=== PATIENT | male | born 1980 | race Caucasian/White ===

== ENCOUNTER → 2018-05-03 11:33 | Outpatient (REF) | payer MEDICAID, SELFPAY ==
[2018-05-03 15:08] LABS: Amphetamine/Metha Screen,Urine Negative ng/mL (<1000); Barbiturates Screen,Urine Negative ng/mL (<200); Benzodiazepines Screen,Urine Negative ng/mL (<200); Cannabinoid Screen,Urine Negative ng/mL (<50); Cocaine Screen,Urine Negative ng/mL (<300); Methadone Screen,Urine Negative ng/mL (<300); Opiate Screen,Urine Negative ng/mL (<300); Phencyclidine Screen,Urine Negative ng/mL (<25)
== END ==
LOC: LAB 11:33
PROVIDERS: Visit Provider Nurse Practitioner Family
DX: Z79.899 Other long term (current) drug therapy (principal)
CPT/HCPCS: 80305

== ENCOUNTER → 2018-05-28 15:24 | Outpatient (CLI) | payer MEDICAID, SELFPAY ==
--- NOTE | 2018-05-28 15:26 | CA_ITS ---
PROCEDURE: 2-D M-mode and color Doppler study INDICATIONS FOR THE TEST: Chest pain+ COPD Heart Murmur Tobacco Smoking+ Palpitations+ Fatigue+ Syncope Edema+ Hypertension Diabetes Mellitus Rheumatic Fever SOB IVAN+Obesity Hyperlipidemia Family History HD+ Additional History dizziness, hx of TV repair, Hx of IV drug use(clean 8 months per patient), hx of ETOH abuse, hx of endocarditis PATIENT INFORMATION HEIGHT: 66 WEIGHT: 181 GENDER: Male B/P: 123/66 2-D/M-MODE INTERPRETATION: 2-D MEASUREMENTS OBSERVED VALUES IN CMS Right Ventricular Dimension (RVDd) 2.4 Interventricular Septum (Thickness)(IVsd) 1.0 Left Ventricular Internal Dimensions(LVIDd) 3.5 Left Ventricular Posterior Wall (Thickness)(LVPWd) 1.0 Aortic Root 2.6 Aortic Cusp Separation 2.0 Left Atrial Dimensions (LAD) 2.8 2D 1. Left atrium is normal size, left ventricle is normal size, there is no concentric left ventricular hypertrophy, visually estimated ejection fraction 55% with no regional wall motion abnormality. 2. The right atrium and right ventricle are relatively normal size and function. 3. The aortic, mitral valve is structurally normal. 4. The tricuspid valve leaflets are not well visualized. 5. The pulmonic valve is poorly visualized. 6. No significant pericardial effusion noted. DOPPLER INTERROGATION: Doppler interrogation of the aortic, mitral and tricuspid valvular presence of moderate to severe tricuspid regurgitation, tricuspid regurgitation jet velocity insufficient for calculation of the right ventricular systolic pressure. CONCLUSION: 1. Normal left ventricular size, preserved left ventricular systolic function, visually estimated ejection fraction 55% with no regional wall motion abnormality, diastolic parameters are within normal range. 2. Moderate to severe tricuspid regurgitation as described above. 3. No significant pericardial effusion noted
== END ==
PROVIDERS: PCP Emergency Medicine; Visit Provider Internal Medicine
DX: Z98.890 Other specified postprocedural states (principal)
CPT/HCPCS: 93306

== ENCOUNTER → 2018-06-11 10:52 | Outpatient (POV) | payer MEDICAID, SELFPAY | PROVIDERS: Family Provider Nurse Practitioner Family; PCP Emergency Medicine; Visit Provider Specialist | DX: R20.2 Paresthesia of skin (principal); R20.0 Anesthesia of skin ==

== ENCOUNTER 2018-09-26 13:31 | Inpatient (IN) ==
--- NOTE | 2018-09-26 13:50 | Emergency Department Note ---
ED Disposition Clinical Impression: Acute hepatitis Disposition: Admitted as Observation Condition on Discharge: Fair - Critical Care Critical Care Time: No Attestation: On 09/26/18, the high probability of a clinically significant, sudden or life threatening deterioration of the following system(s) required my full and direct attention, intervention and personal management. The time I documented below is in addition to time spent performing reported procedures but includes the following listed in this critical care notation. Medical Decision Making - Otoniel Inquiry Pt receiving controlled substance: No Vital Signs: 09/26/18 13:32 09/26/18 15:35 09/26/18 17:09 Temperature 97.7 F Temperature Source Oral Pulse Rate Pulse Rate [Apical] 85 77 75 Respiratory Rate 20 18 Blood Pressure Blood Pressure [Right Arm] 129/80 129/80 177/86 H Blood Pressure Mean [Right Arm] 96 96 116 Blood Pressure Source Blood Pressure Source [Right Arm] Automatic Cuff Automatic Cuff Automatic Cuff Blood Pressure Position Blood Pressure Position [Right Arm] Sitting Sitting Supine 02 Sat by Pulse Oximetry 97 99 98 Oxygen Delivery Method Room Air Room Air Room Air 09/26/18 17:38 09/26/18 18:00 Temperature 97.9 F 98.0 F Temperature Source Oral Oral Pulse Rate 80 Pulse Rate [Apical] 81 Respiratory Rate 18 18 Blood Pressure 125/86 Blood Pressure [Right Arm] 128/89 Blood Pressure Mean [Right Arm] 102 Blood Pressure Source Automatic Cuff Blood Pressure Source [Right Arm] Automatic Cuff Blood Pressure Position Sitting Blood Pressure Position [Right Arm] Sitting 02 Sat by Pulse Oximetry 98 Oxygen Delivery Method Room Air Room Air - Lab Data Lab Results 09/26/18 14:05: WBC 2.2 L, RBC 4.99, Hgb 15.1, Hct 47.7, MCV 95.6 H, MCH 30.2, MCHC 31.6 L, RDW 14.1, Plt Count 103 L, MPV 7.9, Neut % (Auto) 61.4, Lymph % (Auto) 29.4, [place] % (Auto) 7.4, Eos % (Auto) 0.7, Baso % (Auto) 1.0, Neut # (Auto) 1.4 L, Lymph # (Auto) 0.7, [place] # (Auto) 0.2, Eos # (Auto) 0.0, Baso # (Auto) 0.0 09/26/18 14:05: Sodium 135 L, Potassium 3.9, Chloride 101, Carbon Dioxide 27, Anion Gap 10.9, BUN 11, Creatinine 0.94, Estimated Creat Clear 106, Estimated GFR 91, Est GFR ( Amer) 111, Glucose 155 H, Calcium 9.2, Total Bilirubin 7.0 H, Direct Bilirubin 6.4 H, Indirect Bilirubin 0.6, AST 2349 H*, ALT 2252 H*, Alkaline Phosphatase 225 H, Troponin I < 0.02, Total Protein 7.8, Albumin 2.8 L 09/26/18 14:05: Lactate 0.9 09/26/18 14:05: ESR 37 H 09/26/18 14:05: C-Reactive Protein 3.1 H 09/26/18 14:05: PT 15.4 H, INR 1.51 H 09/26/18 14:05: Lipase 126 09/26/18 15:25: Urine Color [place], Urine Appearance Cloudy, Urine pH 5.5, Ur Specific [place] 1.025, Urine Protein 1+, Urine Glucose (UA) Negative, Urine Ketones Trace, Urine Blood Negative, Urine Nitrate Positive, Urine Bilirubin 3+ A, Urine Urobilinogen 4.0, Ur Leukocyte Esterase Negative, Urine RBC None, Urine WBC 3-5, Ur Squamous Epith Cells None, Calcium Oxalate Crystal 1+, Amorphous Sediment 3+, Urine Bacteria 1+ 09/26/18 15:25: Urine Opiates Screen Positive H, Urine Methadone Screen Negative, Ur Barbituates Screen Negative, Ur Phencyclidine Scrn Negative, Ur Amphetamines Screen Positive H, U Benzodiazepines Scrn Negative, Urine Cocaine Screen Negative, U Marijuana (THC) Screen Negative 09/26/18 15:25: Influenza Type A Ag Negative, Influenza Type B Ag Negative 09/26/18 15:25: Group A Strep Rapid Negative Result diagrams: 09/26/18 14:05 09/26/18 14:05 Orders (Tests/Meds): ED MEDICATIONS Generic Name Dose Route Start Last Admin Trade Name Freq PRN Reason Stop Dose Admin Aspirin 325 mg 09/27/18 09:00 Aspirin 325mg Tablet PO 10/27/18 08:59 DAILY RAQUEL Levofloxacin/Dextrose 750 mg in 150 mls @ 100 mls/hr 09/27/18 15:30 Levofloxacin 750mg/150ml Premix IV 10/10/18 15:29 Q24H RAQUEL Protocol Piperacillin Sod/Tazobactam 50 mls @ 100 mls/hr 09/26/18 21:30 Sod 3.375 gm/ Sodium Chloride IV 10/10/18 15:29 Q6H RAQUEL Protocol Sodium Chloride 1,000 mls @ 100 mls/hr 09/26/18 17:48 09/26/18 19:02 Sod Chlor 0.9% 1000ml Bag IV 10/26/18 17:47 100 mls/hr .Q10H RAQUEL Administration Sodium Chloride 25 mls @ 100 mls/hr 09/26/18 18:50 09/26/18 19:02 Sod Chlor 0.9% 25ml Bag IV 10/26/18 18:49 100 mls/hr Q6HP PRN Administration PHENERGAN DILUTION Ketorolac Tromethamine 15 mg 09/26/18 17:48 Toradol 30mg/Ml Vial IV 10/01/18 17:47 Q6HP PRN Moderate Pain Non-Formulary Medication 10 mg 09/27/18 09:00 Bisoprolol Fumarate [Bisoprolol 10mg Tablet] PO 10/27/18 08:59 DAILY RAQUEL Non-Formulary Medication 150 mg 09/27/18 09:00 Bupropion Hcl [Bupropion Xl] PO 10/27/18 08:59 DAILY RAQUEL Non-Formulary Medication 50 mg 09/27/18 09:00 Losartan Potassium [Losartan Potassium] PO 10/27/18 08:59 DAILY RAQUEL Non-Formulary Medication 1 tab 09/27/18 09:00 Buprenorphine Hcl/Naloxone Hcl [Zubsolv 8.6-2.1 Mg Tablet Sl] SUBLINGUAL 10/27/18 08:59 DAILY RAQUEL Ondansetron HCl 4 mg 09/26/18 17:48 Zofran 4mg/2ml Vial IV 10/26/18 17:47 Q8HP PRN Nausea Promethazine HCl 12.5 mg 09/26/18 18:49 09/26/18 19:01 Phenergan 25mg/Ml 1ml Vial IV 10/26/18 18:48 12.5 mg Q6HP PRN Administration NV Sodium Chloride 10 ml 09/26/18 17:48 Saline Flush 10ml Syringe IV 10/26/18 17:47 NEEDED PRN Maintain IV Site Discontinued Medications Generic Name Dose Route Start Last Admin Trade Name Freq PRN Reason Stop Dose Admin Levofloxacin/Dextrose 750 mg in 150 mls @ 100 mls/hr 09/26/18 15:30 09/26/18 15:34 Levofloxacin 750mg/150ml Premix IV 10/10/18 15:29 100 mls/hr Q24H RAQUEL Administration Protocol Piperacillin Sod/Tazobactam 50 mls @ 100 mls/hr 09/26/18 15:30 Sod 3.375 gm/ Sodium Chloride IV 10/10/18 15:29 Q6H RAQUEL Protocol Ketorolac Tromethamine 15 mg 09/26/18 15:01 09/26/18 15:05 Toradol 30mg/Ml Vial IV 09/26/18 15:02 15 mg ONCE ONE Administration Ondansetron HCl 4 mg 09/26/18 15:01 09/26/18 15:05 Zofran 4mg/2ml Vial IV 09/26/18 15:02 4 mg ONCE ONE Administration ORDERS Category Date Time Status Basic Metabolic Panel AMLAB Lab 09/27/18 06:00 Ordered Complete Blood Count Auto Diff AMLAB Lab 09/27/18 06:00 Ordered Diarrhea Panel, PCR Stat Lab 09/26/18 14:58 Ordered Liver Panel AMLAB Lab 09/27/18 06:00 Ordered Blood Culture Stat Micro 09/26/18 14:05 Received Strep Screen Confirmation Stat Micro 09/26/18 15:25 Received - Radiology Data #1 Image(s): Chest Image Reviewed: Yes I have reviewed radiologist's interpretation Preliminary Findings: Normal/NAD - ECG Data Tracing #1 EKG interpreted by Dre Sigala MD: Rhythm: sinus Rate: 76 [place]: normal Ectopy: none Conduction: normal ST Segment Changes: none T Wave Changes: none Q Waves: none No evidence of acute ischemia or injury Normal electrocardiogram - Physician Consults Physician Consulted: Yanet Time: 15:23 Reason -: Pt condition Comment/Response: Prefers patient be transferred to higher level of care if possible. Requests Levaquin and Zosyn. If unable to transfer, admit here on his service on a waiting list for transfer. Additional Consult: olga Anne [facility] Time: 16:09 Reason -: Transfer to another facilty Comment/Response: Patient states he will only be transferred to [facility] because that is where his infectious disease specialist, Dr. March practices. I spoke with Dr. Anne, hospitalist. They are currently putting patients on a waiting list for transfers. He was put on their waiting list. Will admit here per Dr. Holt's instructions. General Adult HPI - General Chief complaint: Chest Pain Stated complaint: chest pain, nausea, fever Time Seen by Provider: 09/26/18 14:40 Mode of Arrival: EMS Limitations: No Limitations Description of Symptoms (Recalled from ER Triage Doc. by RN): Pt reports chest pain, pt points to epigastric area when asked location of pain. Pt reports nausea that began after pain. Pt also reports a productive cough. Pt - History of Present Illness HPI narrative: Patient brought in by ambulance. States that yesterday evening he developed a fever up to 100.9, cough productive of bright yellow sputum, vomiting, diarrhea, rhinorrhea, sore throat, chest pain. History of IV drug abuse. Says that he used IV drugs a couple of days ago, says that he was supposed to be heroin but he does not think it was. He says that he has not been using IV drugs regularly, "just that one time". 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 States he was also hospitalized after that for a lung infection and blood infection in [place]. He states his symptoms n ow are similar. Also has hepatitis C. - Related Data Home Medications Medication Instructions Recorded Confirmed buprenorphine 8.6 mg-naloxone 2.1 1 tab SUBLINGUAL DAILY tab 05/03/18 09/26/18 mg sublingual tablet Aspirin 325 mg PO DAILY 09/26/18 09/26/18 Bisoprolol Fumarate [Bisoprolol 10 mg PO DAILY 09/26/18 09/26/18 10mg Tablet] Losartan Potassium 50 mg PO DAILY 09/26/18 09/26/18 buPROPion HCl [Bupropion Xl] 150 mg PO DAILY 09/26/18 09/26/18 Allergies Allergy/AdvReac Type Severity Reaction Status Date / Time No Known Allergies Allergy Verified 08/09/18 13:04 [facility] History - Hepatitis A Screen Drug use history?: Yes High risk sexual behaviors?: No History of sexually transmitted infection?: No Currently employed?: No Childcare worker?: No Do you have indoor plumbing?: Yes Do you have electricity?: Yes Attestation statement:: This patient has been screened for Hepatitis A risk factors. I have reviewed the patient's past medical history: Yes Medical History: Reports:: Gall Bladder Disease, Hypertension Denies:: Diabetes Mellitus Type 1, Diabetes Mellitus Type 2 Comment: 2 Heart attacks Other Surgeries: Yes: Cardiac Surgery, Cholecystectomy Amputation: No Fractures: No Comment: Tracheonimia, lemnodes removed on neck on left side.. - Social History Smoking Status: Current every day smoker Tobacco Type: cigarettes # Packs/Day (cigarettes): 1 Alcohol Intake: never Alcohol Intake Frequency:: other Substance Use Type: IV drugs, methamphetamine, former substance user, crack/cocaine Occupational Status: unemployed - Psychiatric History Expresses thoughts of harming self/others: None Suicide Plan Description: No Plan Family Hx:: Cancer, Hypertension, Coronary Artery Disease Comment: Father-CAD. Mother-CAD, passed at late 40's ROS Obtained: Yes All systems reviewed & no additional complaints - Constitutional Constitutional: Reports fever(s) - ENT Ears, Nose, Mouth, and Throat: Reports nasal discharge, Reports sore throat - Cardiovascular Cardiovascular: Reports chest pain - Respiratory Respiratory: Yes cough - Gastrointestinal Gastrointestingal: Reports: diarrhea, vomiting Physical Exam - General General appearance: alert Comment: Lying face down at the foot of the bed. Jaundiced. - Head Head exam: atraumatic, normocephalic - Eye Eye exam: Present: PERRL, EOMI, scleral icterus, jaundice - ENT ENT exam: Present: normal oropharynx, mucous membranes moist, TM's normal bilaterally - Neck Neck exam: Present: normal inspection, full ROM. Absent: meningismus, lymphadenopathy - Chest Chest inspection: Present: normal inspection, symmetric chest wall rise - Respiratory Respiratory exam: Present: normal lung sounds bilaterally. Absent: respiratory distress - Cardiovascular Cardiovascular exam: Present: regular rate, normal rhythm, normal heart sounds - Abdominal Exam Abdominal exam: Present: soft. Absent: distention, tenderness, guarding - Extremities Exam Extremities exam: Present: normal inspection, full ROM - Neurological Exam Neurological exam: Present: alert, oriented X3 - Psychiatric Psychiatric exam: Present: anxious - Skin Skin exam: Present: warm, dry, other (Multiple small scabs. No signs of active skin infections. No abscesses.)
[2018-09-26 14:24] LABS: Eosinophils % 0.7 % (0.1-12.0); Hematocrit 47.7 % (42.0-52.0); Hemoglobin 15.1 g/dL (14.1-18.0); Lymphocytes # 0.7 K/mm3 (0.7-4.5); Lymphocytes % 29.4 % (10-50); Mean Corpuscular HGB Conc 31.6 g/dL (31.8-35.4); Mean Corpuscular Hemoglobin 30.2 pg (27.0-31.2); Mean Corpuscular Volume 95.6 fl (80-94); Mean Platelet Volume 7.9 fl (7.4-10.4); Monocytes # 0.2 K/mm3 (0.1-1.0); Monocytes % 7.4 % (1.7-9.3); Neutrophils # 1.4 K/mm3 (1.8-7.8); Neutrophils % 61.4 % (37.0-80.0); Platelet Count 103 K/mm3 (142-424); Red Blood Count 4.99 M/mm3 (4.60-6.20); Red Cell Distribution Width 14.1 % (11.5-17.5); White Blood Count 2.2 K/mm3 (4.8-10.8)
[2018-09-26 14:38] LABS: Albumin Level 2.8 gm/dL (3.4-5.0); Alkaline Phosphatase 225 U/L (46-116); Anion Gap 10.9 mEq/L (5-15); Blood Urea Nitrogen 11 mg/dL (7-18); Carbon Dioxide 27 mmol/L (21.0-32.0); Chloride 101 mmol/L (98-107); Potassium 3.9 mmoL/L (3.5-5.1); Sodium 135 mmol/L (136-145); Total Protein,Serum 7.8 gm/dL (6.4-8.2)
[2018-09-26 14:53] LABS: Bilirubin,Direct 6.4 mg/dL (0.0-0.2); Bilirubin,Indirect 0.6 mg/dL (0.0-0.9); Calcium 9.2 mg/dL (8.5-10.1); Glucose 155 mg/dL (74-106)
[2018-09-26 14:59] LABS: Alanine Aminotransferase 2252 U/L (12-78); Aspartate Amino Transferase 2349 U/L (15-37)
[2018-09-26 15:32] LABS: Microscopic, Urine URINE MICROSCOPIC (MICROSCOPIC)
[2018-09-26 15:53] LABS: Appearance,Urine CLOUDY (Clear); Blood, Urine Negative (Negative); Color,Urine AMBER (Yellow); Glucose,Urine (UA) Negative (Negative); Ketones,Urine TRACE (Negative); Leukocyte Esterase,Urine Negative (Negative); PH,Urine 5.5 (5.0-8.5); Protein,Urine 1+ (Negative); Specific Gravity, Urine 1.025 (1.005-1.030)
[2018-09-26 15:57] LABS: Bilirubin,Urine 3+ (Negative)
[2018-09-26 16:10] LABS: Amorphous Sediment,Urine 3+ /lpf; Amphetamine/Metha Screen,Urine Positive ng/mL (<1000); Bacteria,Urine 1+ /lpf; Barbiturates Screen,Urine Negative ng/mL (<200); Benzodiazepines Screen,Urine Negative ng/mL (<200); Calcium Oxalate Crystals,Urine 1+ /lpf; Cannabinoid Screen,Urine Negative ng/mL (<50); Cocaine Screen,Urine Negative ng/mL (<300); Methadone Screen,Urine Negative ng/mL (<300); Opiate Screen,Urine Positive ng/mL (<300); Phencyclidine Screen,Urine Negative ng/mL (<25)
[2018-09-26 16:59] LABS: INR 1.51 (0.9-1.1); Prothrombin Time 15.4 seconds (9.4-11.8)
--- NOTE | 2018-09-27 07:14 | Pharmacy Consult Notes ---
[facility] Pharmacy VTE Monitoring - Patient Demographics Admission date: 09/26/18 Report Date: 09/27/18 Time: 07:14 Allergies/Adverse Reactions: Patient Allergies No Known Allergies Allergy (Verified 08/09/18 13:04) Height: 1.68 m Weight: 78.131 kg Patient Problems: Current Active Problems Acute hepatitis (Acute) - VTE Risk Labs: VTE Related Lab Results Hgb 15.1 g/dL (14.1-18.0) 09/26/18 14:05 Hct 47.7 % (42.0-52.0) 09/26/18 14:05 Plt Count 103 K/mm3 (142-424) L 09/26/18 14:05 PT 15.4 seconds (9.4-11.8) H 09/26/18 14:05 INR 1.51 (0.9-1.1) H 09/26/18 14:05 BUN 11 mg/dL (7-18) 09/26/18 14:05 Creatinine 0.94 mg/dL (0.70-1.30) 09/26/18 14:05 Estimated Creat Clear 106 mL/min (50-200) 09/26/18 14:05 Was VTE Risk Assessment Performed: Yes VTE Score: 4 VTE Risk Level: Low Risk Clinical Trial Participant: No - Prophylaxis VTE Prophylaxis Ordered?: Yes Types of VTE Prophylaxis: TEDS Knee High
[2018-09-27 07:20] LABS: Basophils % 0.6 % (0.1-2.0); Eosinophils # 0.1 K/mm3 (0.0-0.4); Eosinophils % 2.4 % (0.1-12.0); Hematocrit 43.9 % (42.0-52.0); Hemoglobin 14.9 g/dL (14.1-18.0); Lymphocytes % 29.5 % (10-50); Mean Corpuscular Hemoglobin 31.5 pg (27.0-31.2); Mean Corpuscular Volume 92.7 fl (80-94); Mean Platelet Volume 9.3 fl (7.4-10.4); Monocytes # 0.3 K/mm3 (0.1-1.0); Neutrophils # 1.9 K/mm3 (1.8-7.8); Neutrophils % 57.5 % (37.0-80.0); Platelet Count 97 K/mm3 (142-424); Red Blood Count 4.74 M/mm3 (4.60-6.20); Red Cell Distribution Width 13.9 % (11.5-17.5); White Blood Count 3.3 K/mm3 (4.8-10.8)
--- NOTE | 2018-09-27 09:08 | History & Physical Report ---
*Admission Date: 09/26/18 *Chief complaint: sob *History of present illness: this wm presented to the ed with fever and sob with cough - pt has sig hx of drug abuse including iv misuse- he was seen in the ed and noted to be icteric and he has known hx of hep b and c- possible exposure to hep a - Pt reports ch est pain, pt points to epigastric area when asked location of pain. Pt reports nausea that began after pain. Pt also reports a productive cough. Patient brought in by ambulance. States that yesterday evening he developed a fever up to 100.9, cough productive of bright yellow sputum, vomiting, diarrhea, rhinorrhea, sore throat, chest pain. History of IV drug abuse. Says that he used IV drugs a couple of days ago, says that he was supposed to be heroin but he does not think it was. He says that he has not been using IV drugs regularly, "just that one time". 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 States he was also hospitalized after that for a lung infection and blood infection in [place]. He states his symptoms now are similar. pt was admitted for eval and treatment [facility] History I have reviewed the patient's past medical history: Yes Medical History: Reports:: Gall Bladder Disease, Hypertension, Myocardial Infarction (x2), Palpitations Denies:: Cancer, Diabetes Mellitus Type 1, Diabetes Mellitus Type 2 Have you ever received a pneumonia vaccine?: Yes Have you received a flu vaccine this season?: Yes Other Surgeries: Yes: Cardiac Surgery, Cholecystectomy Amputation: No Fractures: No - *Social History Educational Level: Attended High School Smoking Status: Current every day smoker Tobacco Type: cigarettes # Packs/Day (cigarettes): 1 Alcohol Intake: never Alcohol Intake Frequency:: other Substance Use Type: IV drugs, methamphetamine, former substance user, crack/cocaine Last Used Substance: days (ago) Occupational Status: unemployed Travel in the last 8 weeks: None - Psychiatric History Expresses thoughts of harming self/others: None Suicide Plan Description: No Plan *Family Hx:: Cancer, Hypertension, Coronary Artery Disease Review of Systems - Review of Systems Review of systems:: pertinent systems reviewed and negative unless documented below - Constitutional Reports fever(s), Reports lack of energy, Reports weakness - Eyes Denies change in vision - ENT Denies sore throat - *Cardiovascular Denies shortness of breath - *Respiratory Reports cough, Reports shortness of breath, Denies coughing up blood - *Gastrointestinal Reports abdominal pain, Denies black, tarry stools - *Genitourinary Denies blood in urine - *Musculoskeletal Denies joint pain, Denies joint swelling - Integumentary/Breasts Denies rash - *Neurologic Reports weakness, Denies confusion, Denies headache(s), Denies seizure-like activity - Psychiatric Reports other (at baseline) Meds Home Medications Medication Instructions Recorded Confirmed Type buprenorphine 8.6 mg-naloxone 2.1 2 tab SUBLINGUAL DAILY tab 05/03/18 09/27/18 History mg sublingual tablet Aspirin 325 mg PO DAILY 09/26/18 09/26/18 History Bisoprolol Fumarate [Bisoprolol 10 mg PO DAILY 09/26/18 09/26/18 History 10mg Tablet] Losartan Potassium 50 mg PO DAILY 09/26/18 09/26/18 History buPROPion HCl [Bupropion Xl] 150 mg PO DAILY 09/26/18 09/26/18 History Allergies Allergy/AdvReac Type Severity Reaction Status Date / Time No Known Allergies Allergy Verified 08/09/18 13:04 Exam Vital signs and Labs for Last 24 Hours: Temp Pulse Resp BP Pulse Ox 98.4 F 65 17 124/55 L 99 09/27/18 08:00 09/27/18 08:00 09/27/18 08:00 09/27/18 08:00 09/27/18 08:00 Laboratory Results - last 24 hr 09/26/18 14:05: WBC 2.2 L, RBC 4.99, Hgb 15.1, Hct 47.7, MCV 95.6 H, MCH 30.2, MCHC 31.6 L, RDW 14.1, Plt Count 103 L, MPV 7.9, Neut % (Auto) 61.4, Lymph % (Auto) 29.4, [place] % (Auto) 7.4, Eos % (Auto) 0.7, Baso % (Auto) 1.0, Neut # (Auto) 1.4 L, Lymph # (Auto) 0.7, [place] # (Auto) 0.2, Eos # (Auto) 0.0, Baso # (Auto) 0.0 09/26/18 14:05: Sodium 135 L, Potassium 3.9, Chloride 101, Carbon Dioxide 27, Anion Gap 10.9, BUN 11, Creatinine 0.94, Estimated Creat Clear 106, Estimated GFR 91, Est GFR ( Amer) 111, Glucose 155 H, Calcium 9.2, Total Bilirubin 7.0 H, Direct Bilirubin 6.4 H, Indirect Bilirubin 0.6, AST 2349 H*, ALT 2252 H*, Alkaline Phosphatase 225 H, Troponin I < 0.02, Total Protein 7.8, Albumin 2.8 L 09/26/18 14:05: Lactate 0.9 09/26/18 14:05: ESR 37 H 09/26/18 14:05: C-Reactive Protein 3.1 H 09/26/18 14:05: PT 15.4 H, INR 1.51 H 09/26/18 14:05: Lipase 126 09/26/18 15:25: Urine Color [place], Urine Appearance Cloudy, Urine pH 5.5, Ur Specific [place] 1.025, Urine Protein 1+, Urine Glucose (UA) Negative, Urine Ketones Trace, Urine Blood Negative, Urine Nitrate Positive, Urine Bilirubin 3+ A, Urine Urobilinogen 4.0, Ur Leukocyte Esterase Negative, Urine RBC None, Urine WBC 3-5, Ur Squamous Epith Cells None, Calcium Oxalate Crystal 1+, Amorphous Sediment 3+, Urine Bacteria 1+ 09/26/18 15:25: Urine Opiates Screen Positive H, Urine Methadone Screen Negative, Ur Barbituates Screen Negative, Ur Phencyclidine Scrn Negative, Ur Amphetamines Screen Positive H, U Benzodiazepines Scrn Negative, Urine Cocaine Screen Negative, U Marijuana (THC) Screen Negative 09/26/18 15:25: Influenza Type A Ag Negative, Influenza Type B Ag Negative 09/26/18 15:25: Group A Strep Rapid Negative 09/27/18 06:25: Stl Aeromonas (PCR) Not detected, Stl C. cayetanensis PCR Not detected, Stool Rotavirus (PCR) Not detected, Stl Adenov F 40/41 PCR Not detected, Stool Astrovirus (PCR) Not detected, Stool Campylobacter PCR Not detected, Stl C.difficile Tox PCR Detected A, Stool Cryptosporidium PCR Not detected, Stl E.coli Shiga Tox PCR Not detected, Stool E coli O157 PCR Not detected, Stl Enterotoxigenic E PCR Not detected, Stool EPEC (PCR) Not detected, Stool EAEC (PCR) Not detected, Stl E. histolytica PCR Not detected, Stool Giardia Lamblia PCR Not detected, Stool Salmonella PCR Not detected, Stool Sapovirus (PCR) Not detected, Stl P. shigelloides PCR Not detected, Stl Shigella/EIEC PCR Not detected, St Y.enterocolitica PCR Not detected, Stool Vibrio (PCR) Not detected, Stl Vibrio cholerae PCR Not detected, Stl Norovirus GI/GII PCR Not detected 09/27/18 07:05: WBC 3.3 L D, RBC 4.74, Hgb 14.9, Hct 43.9, MCV 92.7, MCH 31.5 H, MCHC 34.0, RDW 13.9, Plt Count 97 L, MPV 9.3, Neut % (Auto) 57.5, Lymph % (Auto) 29.5, [place] % (Auto) 10.0 H, Eos % (Auto) 2.4, Baso % (Auto) 0.6, Neut # (Auto) 1.9, Lymph # (Auto) 1.0, [place] # (Auto) 0.3, Eos # (Auto) 0.1, Baso # (Auto) 0.0 I & O for Last 24 hours: Intake & Output 09/24/18 09/25/18 09/26/18 09/27/18 11:59 11:59 11:59 11:59 Intake Total 1080 / 1080 Output Total 400 / 400 Balance 680 / 680 Weight 172 lb 4 oz - Constitutional no acute distress - *Routine HEENT Exam Head: Present: normocephalic Eye: Present: EOMI, PERRL, conjunctival icterus ENT: Present: mucous membranes dry - *Routine Neck Exam Present: supple. Absent: JVD - *Routine Respiratory Exam Present: CTA bilaterally - *Routine Cardiovascular Exam Present: RRR, murmur. Absent: gallop, rubs, click - *Routine Abdominal Exam Present: soft, tenderness. Absent: organomegaly - *Routine Extremities Exam Present: full ROM. Absent: edema, calf tenderness - *Routine Skin Exam Present: intact - *Routine Neurological Exam Present: alert, oriented X3, CN II-XII intact. Absent: sensory deficit, motor deficit, altered mental status - Routine Psychiatric Exam Present: normal affect Assessment and Plan (1) IVDU (intravenous drug user) Current visit: Yes Status: Acute Category: Medical Code(s): F19.90 - Other psychoactive substance use, unspecified, uncomplicated (2) Acute hepatitis Current visit: Yes Status: Acute Category: Medical Code(s): B17.9 - Acute viral hepatitis, unspecified (3) History of endocarditis Current visit: No Status: Chronic Category: Medical Code(s): Z86.79 - Personal history of other diseases of the circulatory system (4) Leukopenia Current visit: Yes Status: Acute Category: Medical Code(s): D72.819 - Decreased white blood cell count, unspecified (5) Thrombocytopenia Current visit: Yes Status: Acute Category: Medical Code(s): D69.6 - Thrombocytopenia, unspecified (6) C. difficile colitis Current visit: Yes Status: Acute Category: Medical Code(s): A04.72 - Enterocolitis due to Clostridium difficile, not specified as recurrent (7) Buprenorphine dependence Current visit: Yes Status: Acute Category: Medical Code(s): F11.20 - Opioid dependence, uncomplicated
[2018-09-27 10:53] LABS: Albumin Level 2.3 gm/dL (3.4-5.0); Anion Gap 9.8 mEq/L (5-15); Potassium 3.8 mmoL/L (3.5-5.1); Total Protein,Serum 6.7 gm/dL (6.4-8.2)
[2018-09-27 12:04] LABS: Bilirubin,Total 7.3 mg/dL (0.2-1.0)
[2018-09-27 12:05] LABS: Bilirubin,Direct 5.9 mg/dL (0.0-0.2); Bilirubin,Indirect 1.4 mg/dL (0.0-0.9)
[2018-09-28 07:45] LABS: Basophils % 0.9 % (0.1-2.0); Eosinophils # 0.1 K/mm3 (0.0-0.4); Eosinophils % 3.7 % (0.1-12.0); Hematocrit 42.5 % (42.0-52.0); Hemoglobin 13.6 g/dL (14.1-18.0); Lymphocytes # 0.7 K/mm3 (0.7-4.5); Lymphocytes % 41.1 % (10-50); Mean Corpuscular HGB Conc 31.9 g/dL (31.8-35.4); Mean Corpuscular Hemoglobin 31.3 pg (27.0-31.2); Mean Corpuscular Volume 97.9 fl (80-94); Mean Platelet Volume 8.5 fl (7.4-10.4); Monocytes # 0.2 K/mm3 (0.1-1.0); Neutrophils # 0.7 K/mm3 (1.8-7.8); Neutrophils % 44.3 % (37.0-80.0); Platelet Count 68 K/mm3 (142-424); Red Blood Count 4.34 M/mm3 (4.60-6.20); Red Cell Distribution Width 14.2 % (11.5-17.5); White Blood Count 1.6 K/mm3 (4.8-10.8)
[2018-09-28 07:57] LABS: Albumin/Globulin Ratio 0.5 (1.1-1.8); Anion Gap 11.8 mEq/L (5-15); Globulin 4.1 gm/dl (1.3-3.2); Potassium 3.8 mmoL/L (3.5-5.1); Total Protein,Serum 6.1 gm/dL (6.4-8.2)
[2018-09-28 09:00] LABS: Bilirubin,Total 6.2 mg/dL (0.2-1.0); Calcium 7.8 mg/dL (8.5-10.1)
--- NOTE | 2018-09-28 19:27 | Progress Note ---
Internal Medicine - PN: Subj *Date: 09/28/18 *Time: 08:00 Interval history: pt with no new c/o- low wbc - lft better- crampy abd pain Exam Vital signs and Labs for Last 24 Hours: Temp Pulse Resp BP Pulse Ox 98.1 F 49 L 16 115/63 97 09/28/18 16:00 09/28/18 16:00 09/28/18 16:00 09/28/18 16:00 09/28/18 16:00 Laboratory Results - last 24 hr 09/28/18 07:30: WBC 1.6 L* D, RBC 4.34 L, Hgb 13.6 L, Hct 42.5, MCV 97.9 H, MCH 31.3 H, MCHC 31.9, RDW 14.2, Plt Count 68 L D, MPV 8.5, Neut % (Auto) 44.3, Lymph % (Auto) 41.1, [place]mers % (Auto) 10.0 H, Eos % (Auto) 3.7, Baso % (Auto) 0.9, Neut # (Auto) 0.7 L*, Lymph # (Auto) 0.7, [place]mers # (Auto) 0.2, Eos # (Auto) 0.1, Baso # (Auto) 0.0 09/28/18 07:30: Sodium 140, Potassium 3.8, Chloride 109 H, Carbon Dioxide 23, Anion Gap 11.8, BUN 9, Creatinine 0.90, Estimated Creat Clear 127, Estimated GFR 96, Est GFR ( Amer) 116, Glucose 125 H D, Calcium 7.8 L, Total Bilirubin 6.2 H, AST 1447 H* D, ALT 1822 H*, Alkaline Phosphatase 166 H, Total Protein 6.1 L, Albumin 2.0 L D, Globulin 4.1 H, Albumin/Globulin Ratio 0.5 L I & O for Last 24 hours: Intake & Output 09/26/18 09/27/18 09/28/18 09/29/18 11:59 11:59 11:59 11:59 Intake Total 1180 / 1180 6358 / 6358 480 / 480 Output Total 400 / 400 1500 / 1500 Balance 780 / 780 4858 / 4858 480 / 480 Weight 172 lb 4 oz Microbiology Reports for the Last 24 Hours: Microbiology 01/23/19 14:05 Blood Blood Culture - Preliminary NO GROWTH AFTER 48 HOURS 09/26/18 14:05 Blood Blood Culture - Preliminary NO GROWTH AFTER 48 HOURS 09/26/18 15:25 Throat Group A Streptococcus Screen ([facility]) - Final Negative for Group A Streptococcus. - Constitutional no acute distress - *Routine HEENT Exam Head: Present: normocephalic Eye: Present: EOMI, PERRL, conjunctival icterus ENT: Present: mucous membranes dry - *Routine Neck Exam Present: supple - *Routine Respiratory Exam Present: CTA bilaterally - *Routine Cardiovascular Exam Present: RRR. Absent: murmur, rubs - *Routine Abdominal Exam Present: soft. Absent: tenderness - *Routine Extremities Exam Absent: edema - *Routine Skin Exam Present: intact - *Routine Neurological Exam Present: alert, oriented X3, CN II-XII intact - Routine Psychiatric Exam Present: normal affect Assessment and Plan (1) IVDU (intravenous drug user) Current visit: Yes Status: Acute Category: Medical Code(s): F19.90 - Other psychoactive substance use, unspecified, uncomplicated (2) Acute hepatitis Current visit: Yes Status: Acute Category: Medical Code(s): B17.9 - Acute viral hepatitis, unspecified (3) History of endocarditis Current visit: No Status: Chronic Category: Medical Code(s): Z86.79 - Personal history of other diseases of the circulatory system (4) Leukopenia Current visit: Yes Status: Acute Category: Medical Code(s): D72.819 - Decreased white blood cell count, unspecified (5) Thrombocytopenia Current visit: Yes Status: Acute Category: Medical Code(s): D69.6 - Thrombocytopenia, unspecified (6) C. difficile colitis Current visit: Yes Status: Acute Category: Medical Code(s): A04.72 - Enterocolitis due to Clostridium difficile, not specified as recurrent (7) Buprenorphine dependence Current visit: Yes Status: Acute Category: Medical Code(s): F11.20 - Opioid dependence, uncomplicated
[2018-09-29 08:22] LABS: Hepatitis B Core Antibody IgM Negative (Negative)
[2018-09-29 09:02] LABS: Basophils % 0.5 % (0.1-2.0); Eosinophils # 0.1 K/mm3 (0.0-0.4); Eosinophils % 3.7 % (0.1-12.0); Hematocrit 42.5 % (42.0-52.0); Hemoglobin 13.5 g/dL (14.1-18.0); Lymphocytes # 0.8 K/mm3 (0.7-4.5); Lymphocytes % 43.2 % (10-50); Mean Corpuscular HGB Conc 31.7 g/dL (31.8-35.4); Mean Corpuscular Hemoglobin 31.3 pg (27.0-31.2); Mean Corpuscular Volume 98.9 fl (80-94); Mean Platelet Volume 8.1 fl (7.4-10.4); Monocytes # 0.1 K/mm3 (0.1-1.0); Neutrophils # 0.8 K/mm3 (1.8-7.8); Neutrophils % 45.6 % (37.0-80.0); Platelet Count 61 K/mm3 (142-424); White Blood Count 1.8 K/mm3 (4.8-10.8)
--- NOTE | 2018-09-29 10:33 | Progress Note ---
Internal Medicine - PN: Subj *Date: 09/29/18 *Time: 08:00 Interval history: doing better and labs pending Exam Vital signs and Labs for Last 24 Hours: Temp Pulse Resp BP Pulse Ox 98.2 F 66 16 102/67 L 98 09/29/18 08:00 09/29/18 08:00 09/29/18 08:00 09/29/18 08:00 09/29/18 08:00 Laboratory Results - last 24 hr 09/29/18 08:30: WBC 1.8 L*, RBC 4.30 L, Hgb 13.5 L, Hct 42.5, MCV 98.9 H, MCH 31.3 H, MCHC 31.7 L, RDW 14.0, Plt Count 61 L, MPV 8.1, Neut % (Auto) 45.6, Lymph % (Auto) 43.2, [place] % (Auto) 7.0, Eos % (Auto) 3.7, Baso % (Auto) 0.5, Neut # (Auto) 0.8 L*, Lymph # (Auto) 0.8, [place] # (Auto) 0.1, Eos # (Auto) 0.1, Baso # (Auto) 0.0 I & O for Last 24 hours: Intake & Output 09/26/18 09/27/18 09/28/18 09/29/18 11:59 11:59 11:59 11:59 Intake Total 1180 / 1180 6358 / 6358 1160 / 1160 Output Total 400 / 400 1500 / 1500 Balance 780 / 780 4858 / 4858 1160 / 1160 Weight 172 lb 4 oz Microbiology Reports for the Last 24 Hours: Microbiology 09/26/18 14:05 Blood Blood Culture - Preliminary NO GROWTH AFTER 48 HOURS 09/26/18 14:05 Blood Blood Culture - Preliminary NO GROWTH AFTER 48 HOURS 09/26/18 15:25 Throat Group A Streptococcus Screen ([facility]) - Final Negative for Group A Streptococcus. - Constitutional no acute distress - *Routine HEENT Exam Head: Present: normocephalic Eye: Present: EOMI, PERRL ENT: Present: mucous membranes dry - *Routine Neck Exam Present: supple. Absent: JVD - *Routine Respiratory Exam Absent: respiratory distress - *Routine Cardiovascular Exam Present: RRR, murmur - *Routine Abdominal Exam Present: soft - *Routine Extremities Exam Present: cyanosis. Absent: edema - *Routine Skin Exam Present: intact. Absent: petechiae - *Routine Neurological Exam Present: alert, oriented X3, CN II-XII intact - Routine Psychiatric Exam Present: normal affect Assessment and Plan (1) IVDU (intravenous drug user) Current visit: Yes Status: Acute Category: Medical Code(s): F19.90 - Other psychoactive substance use, unspecified, uncomplicated (2) Acute hepatitis Current visit: Yes Status: Acute Category: Medical Code(s): B17.9 - Acute viral hepatitis, unspecified (3) History of endocarditis Current visit: No Status: Chronic Category: Medical Code(s): Z86.79 - Personal history of other diseases of the circulatory system (4) Leukopenia Current visit: Yes Status: Acute Category: Medical Code(s): D72.819 - Decreased white blood cell count, unspecified (5) Thrombocytopenia Current visit: Yes Status: Acute Category: Medical Code(s): D69.6 - Thrombocytopenia, unspecified (6) C. difficile colitis Current visit: Yes Status: Acute Category: Medical Code(s): A04.72 - Enterocolitis due to Clostridium difficile, not specified as recurrent (7) Buprenorphine dependence Current visit: Yes Status: Acute Category: Medical Code(s): F11.20 - Opioid dependence, uncomplicated
[2018-09-29 12:36] LABS: Total Protein,Serum 6.3 gm/dL (6.4-8.2)
[2018-09-29 13:16] LABS: Bilirubin,Direct 5.6 mg/dL (0.0-0.2); Bilirubin,Indirect 1.3 mg/dL (0.0-0.9); Bilirubin,Total 6.9 mg/dL (0.2-1.0)
[2018-09-30 09:02] LABS: Basophils % 0.8 % (0.1-2.0); Eosinophils # 0.1 K/mm3 (0.0-0.4); Eosinophils % 2.9 % (0.1-12.0); Hematocrit 44.6 % (42.0-52.0); Hemoglobin 14.2 g/dL (14.1-18.0); Lymphocytes # 0.8 K/mm3 (0.7-4.5); Lymphocytes % 33.4 % (10-50); Mean Corpuscular HGB Conc 31.8 g/dL (31.8-35.4); Mean Corpuscular Hemoglobin 31.2 pg (27.0-31.2); Mean Platelet Volume 8.3 fl (7.4-10.4); Monocytes # 0.2 K/mm3 (0.1-1.0); Monocytes % 6.9 % (1.7-9.3); Neutrophils # 1.4 K/mm3 (1.8-7.8); Platelet Count 84 K/mm3 (142-424); Red Blood Count 4.55 M/mm3 (4.60-6.20); White Blood Count 2.5 K/mm3 (4.8-10.8)
--- NOTE | 2018-09-30 09:22 | Discharge Summary ---
General - General Admission date:: 09/26/18 Discharge date: 09/30/18 HPI HPI: this wm presented to the ed with fever and sob with cough - pt has sig hx of drug abuse including iv misuse- he was seen in the ed and noted to be icteric and he has known hx of hep b and c- possible exposure to hep a - Pt reports chest pain, pt points to epigastric area when asked location of pain. Pt reports nausea that began after pain. Pt also reports a productive cough. Patient brought in by ambulance. States that yesterday evening he developed a fever up to 100.9, cough productive of bright yellow sputum, vomiting, diarrhea, rhinorrhea, sore throat, chest pain. History of IV drug abuse. Says that he used IV drugs a couple of days ago, says that he was supposed to be heroin but he does not think it was. He says that he has not been using IV drugs regularly, "just that one time". 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 States he was also hospitalized after that for a lung infection and blood infection in [place]. He states his symptoms now are similar. pt was admitted for eval and treatment Hospital Course Hospital Course: pt has did better in hospital with ivf and has c diff on stool sample and prob hepatitis - he has improved with dec lft and better gi issues and has low wbc which has improved - hepatitis panel and hiv pending - no fever and vss- will follow closely in office and will refer to dr alfredo- hematology Objective Vital signs: Temp Pulse Resp BP Pulse Ox 98.2 F 72 18 130/74 97 09/30/18 08:00 09/30/18 08:00 09/30/18 08:00 09/30/18 08:00 09/30/18 08:00 no acute distress - *Routine HEENT Exam Head: Present: normocephalic Eye: Present: EOMI, PERRL, conjunctival icterus ENT: Present: mucous membranes moist - *Routine Neck Exam Present: supple - *Routine Respiratory Exam Present: CTA bilaterally - *Routine Cardiovascular Exam Present: RRR, murmur. Absent: rubs - *Routine Abdominal Exam Present: soft - *Routine Extremities Exam Present: full ROM - *Routine Skin Exam Present: intact - *Routine Neurological Exam Present: alert, oriented X3, CN II-XII intact - Routine Psychiatric Exam Present: normal affect Results Labs on day of discharge: Labs from last 24 hours 09/30/18 09/29/18 08:55 08:30 WBC 2.5 L D RBC 4.55 L Hgb 14.2 Hct 44.6 MCV 98.0 H MCH 31.2 MCHC 31.8 RDW 14.0 Plt Count 84 L D MPV 8.3 Neut % (Auto) 56.0 Lymph % (Auto) 33.4 [place] % (Auto) 6.9 Eos % (Auto) 2.9 Baso % (Auto) 0.8 Neut # (Auto) 1.4 L Lymph # (Auto) 0.8 [place] # (Auto) 0.2 Eos # (Auto) 0.1 Baso # (Auto) 0.0 Total Bilirubin 6.9 H Direct Bilirubin 5.6 H Indirect Bilirubin 1.3 H AST 759 H* D ALT 1274 H* Alkaline Phosphatase 159 H Total Protein 6.3 L Albumin 2.0 L Preliminary micro results at discharge 09/26/18 14:05 Blood Culture - Preliminary Blood NO GROWTH AFTER 48 HOURS 09/26/18 14:05 Blood Culture - Preliminary Blood NO GROWTH AFTER 48 HOURS DS: Diagnosis - Discharge Diagnosis (1) IVDU (intravenous drug user) Status: Acute (2) Acute hepatitis Status: Acute (3) History of endocarditis Status: Chronic (4) Leukopenia Status: Acute (5) Thrombocytopenia Status: Acute (6) C. difficile colitis Status: Acute (7) Buprenorphine dependence Status: Acute Discharge Plan - Patient Discharge Instructions ACTIVITY: Continue current activity DIET: continue same diet Patient Instructions: Antibiotic-associated Colitis -- C difficile, Hepatitis A Virus, Hepatitis B Virus, DI for Hepatitis C - Follow up Plan Disposition: Home, Self-Detention Medications: Home Medications Medication Instructions Recorded Confirmed Type buprenorphine 8.6 mg-naloxone 2.1 2 tab SUBLINGUAL DAILY tab 05/03/18 09/29/18 History mg sublingual tablet Aspirin 325 mg PO DAILY 09/26/18 09/26/18 History Bisoprolol Fumarate [Bisoprolol 10 mg PO DAILY 09/26/18 09/29/18 History 10mg Tablet] buPROPion HCl [Bupropion Xl] 150 mg PO DAILY 09/26/18 09/29/18 History Losartan Potassium 50 mg PO DAILY 09/28/18 09/28/18 History metroNIDAZOLE [Flagyl 500mg 500 mg PO TID #30 tab 09/30/18 Rx Tablet] Prescriptions/Medication Reconciliation: New Irbesartan [Avapro 75mg tablet] 75 mg PO DAILY tablet metroNIDAZOLE [Flagyl 500mg Tablet] 500 mg PO TID #30 tab Continue buprenorphine 8.6 mg-naloxone 2.1 mg sublingual tablet 2 tab SUBLINGUAL DAILY tab Bisoprolol Fumarate [Bisoprolol 10mg Tablet] 10 mg PO DAILY buPROPion HCl [Bupropion Xl] 150 mg PO DAILY Losartan Potassium 50 mg PO DAILY Aspirin 325 mg PO DAILY
--- NOTE | 2018-09-30 10:51 | Progress Note ---
Internal Medicine - PN: Subj *Date: 09/30/18 *Time: 10:51 Exam Vital signs and Labs for Last 24 Hours: Temp Pulse Resp BP Pulse Ox 98.2 F 72 18 130/74 97 09/30/18 08:00 09/30/18 08:00 09/30/18 08:00 09/30/18 08:00 09/30/18 08:00 Laboratory Results - last 24 hr 09/29/18 08:30: Total Bilirubin 6.9 H, Direct Bilirubin 5.6 H, Indirect Bilirubin 1.3 H, AST 759 H* D, ALT 1274 H*, Alkaline Phosphatase 159 H, Total Protein 6.3 L, Albumin 2.0 L 09/30/18 08:55: WBC 2.5 L D, RBC 4.55 L, Hgb 14.2, Hct 44.6, MCV 98.0 H, MCH 31.2, MCHC 31.8, RDW 14.0, Plt Count 84 L D, MPV 8.3, Neut % (Auto) 56.0, Lymph % (Auto) 33.4, [place] % (Auto) 6.9, Eos % (Auto) 2.9, Baso % (Auto) 0.8, Neut # (Auto) 1.4 L, Lymph # (Auto) 0.8, [place] # (Auto) 0.2, Eos # (Auto) 0.1, Baso # (Auto) 0.0 I & O for Last 24 hours: Intake & Output 09/27/18 09/28/18 09/29/18 09/30/18 23:59 23:59 23:59 23:59 Intake Total 4970 / 4970 3298 / 3298 1979 480 / 480 Output Total 1700 / 1700 200 / 200 Balance 3270 / 3270 3098 / 3098 1979 480 / 480 Weight 78.131 kg Assessment and Plan (1) IVDU (intravenous drug user) Current visit: Yes Status: Acute Category: Medical Code(s): F19.90 - Other psychoactive substance use, unspecified, uncomplicated (2) Acute hepatitis Current visit: Yes Status: Acute Category: Medical Code(s): B17.9 - Acute viral hepatitis, unspecified (3) History of endocarditis Current visit: No Status: Chronic Category: Medical Code(s): Z86.79 - Personal history of other diseases of the circulatory system (4) Leukopenia Current visit: Yes Status: Acute Category: Medical Code(s): D72.819 - Decreased white blood cell count, unspecified (5) Thrombocytopenia Current visit: Yes Status: Acute Category: Medical Code(s): D69.6 - Thrombocytopenia, unspecified (6) C. difficile colitis Current visit: Yes Status: Acute Category: Medical Code(s): A04.72 - Enterocolitis due to Clostridium difficile, not specified as recurrent (7) Buprenorphine dependence Current visit: Yes Status: Acute Category: Medical Code(s): F11.20 - Opioid dependence, uncomplicated The patient's infection will respond to the chosen ABx?: Yes Is the patient receiving the right drug, dose, and route?: Yes Could a more targeted ABx be ordered?: No
[2018-09-30 17:15] LABS: Hepatitis B Surface Antigen Positive (Negative); Hepatitis C Antibody >11.0 s/co ratio (0.0-0.9)
== END 2018-09-30 13:00 | disposition home or self-care (01) | DRG 372 ==
LOC: 2ND 13:31 → ER 13:31 → OBSVTOIN 18:00 → 2ND 18:01
PROVIDERS: ADMIT Emergency Medicine; ATTEND Emergency Medicine
CPT/HCPCS: 36415; 71020; 71046; 80048; 80053; 80074; 80076; 80305; 81001; 82140; 83605; 83690; 84484; 85025; 85610; 85651; 86140; 86703; 87040; 87275; 87276; 87430; 87507; 93005; 96365; 96375; 99285; G0432; J0571; J1956; J2405; J2543